=== PATIENT | male | born 2000 | race Caucasian/White ===

== ENCOUNTER 2018-01-12 23:42 | Emergency (ER) | payer MEDICAID, OTHER ==
[~2018-01-12] VITALS: Ht 185.4 cm; Wt 100.0 kg
[2018-01-12 23:44] VITALS: BP 141/74
[2018-01-13] MEDS ORDERED: DIPH,PERTUSS(ACELL),TET VAC/PF 0.5 ML IM-VACC ONE ×2 (00:20→00:30)
== END 2018-01-13 01:27 | disposition home or self-care (01) ==
LOC: ED 01-13 00:21
DX: S09.90XA Unspecified injury of head, initial encounter (principal); S41.051A Open bite of right shoulder, initial encounter; F17.200 Nicotine dependence, unspecified, uncomplicated; Y04.1XXA Assault by human bite, initial encounter; Y93.89 Activity, other specified; Y92.89 Other specified places as the place of occurrence of the external cause; Y99.8 Other external cause status
CPT/HCPCS: 70450; 90471; 90715; 99284